=== PATIENT | female | born 1955 | race Caucasian/White ===

== ENCOUNTER 2016-07-12 11:43 | Emergency (ER) | payer MEDICAID, OTHER ==
[~2016-07-12] VITALS: Ht 180.3 cm; Wt 100.0 kg
[~2016-07-12 11:43] MED LIST: BENZ2TAB10 PO; HALO5 PO; HALOD50I; LISI10TA7 PO
[2016-07-12] MEDS ORDERED: IBUPROFEN 600 MG TABLET PO ONE (13:15)
[2016-07-12 13:40] VITALS: BP 133/74
== END 2016-07-12 14:25 | disposition home or self-care (01) ==
LOC: EMS 11:44
DX: J02.9 Acute pharyngitis, unspecified (principal); F17.210 Nicotine dependence, cigarettes, uncomplicated
CPT/HCPCS: 99282; 99283

== ENCOUNTER 2016-08-09 08:51 | Emergency (ER) | payer OTHER ==
[~2016-08-09] VITALS: Ht 182.9 cm; Wt 104.5 kg
[2016-08-09] MEDS ORDERED: PERTUSS(ACELL),DIPH,TET VAC/PF 0.5 ML VIAL IM ONE (11:00)
[2016-08-09 11:18] VITALS: BP 158/91
== END 2016-08-09 11:20 | disposition home or self-care (01) ==
LOC: EMS 08:53
DX: Z23 Encounter for immunization (principal); F17.210 Nicotine dependence, cigarettes, uncomplicated; Z95.0 Presence of cardiac pacemaker
CPT/HCPCS: 90471; 90715; 99283

== ENCOUNTER 2016-08-14 09:01 | Emergency (ER) | payer OTHER ==
[~2016-08-14] VITALS: Ht 182.9 cm; Wt 104.5 kg
[2016-08-14 10:00] VITALS: BP 132/76
[2016-08-14] MEDS ORDERED: MetroNIDAZOLE 500 MG TABLET PO ONE (10:00)
== END 2016-08-14 10:27 | disposition home or self-care (01) ==
LOC: EMS 09:03
DX: N89.8 Other specified noninflammatory disorders of vagina (principal); F20.9 Schizophrenia, unspecified; J40 Bronchitis, not specified as acute or chronic; F17.210 Nicotine dependence, cigarettes, uncomplicated; Z95.0 Presence of cardiac pacemaker
CPT/HCPCS: 99283; 99406

== ENCOUNTER 2016-09-10 10:09 | Emergency (ER) | payer OTHER ==
[~2016-09-10] VITALS: Ht 177.8 cm; Wt 104.5 kg
[2016-09-10 11:45] VITALS: BP 142/71
== END 2016-09-10 11:49 | disposition home or self-care (01) ==
LOC: EMS 10:12
DX: K02.9 Dental caries, unspecified (principal); R03.0 Elevated blood-pressure reading, without diagnosis of hypertension; F17.210 Nicotine dependence, cigarettes, uncomplicated; Z95.0 Presence of cardiac pacemaker
CPT/HCPCS: 99283

== ENCOUNTER 2016-09-17 09:56 | Emergency (ER) | payer OTHER ==
[~2016-09-17] VITALS: Ht 182.9 cm; Wt 104.5 kg
[2016-09-17] MEDS ORDERED: AMOX250C4 PO (10:39)
[2016-09-17 12:26] VITALS: BP 148/74
[2016-09-17] MEDS ORDERED: HYDROCODONE/ACETAMINOPHEN 5-325 MG TABLET PO ONE (13:00)
[2016-09-17] MEDS ORDERED: FLUCONAZOLE 150 MG TABLET PO ONE (13:00)
== END 2016-09-17 13:40 | disposition home or self-care (01) ==
LOC: EMS 09:58
DX: B37.3 Candidiasis of vulva and vagina (principal); G89.29 Other chronic pain; F17.210 Nicotine dependence, cigarettes, uncomplicated; Z95.0 Presence of cardiac pacemaker
CPT/HCPCS: 99283

== ENCOUNTER 2016-10-01 07:56 | Emergency (ER) | payer OTHER ==
[~2016-10-01] VITALS: Ht 182.9 cm; Wt 98.0 kg
[~2016-10-01 07:56] MED LIST changes: +AMOX250C4 PO; -BENZ2TAB10 PO; -HALO5 PO; -HALOD50I; -LISI10TA7 PO
[2016-10-01 08:01] VITALS: BP 155/68
[2016-10-01] MEDS ORDERED: FLUCONAZOLE 150 MG TABLET PO ONE (08:15)
== END 2016-10-01 08:27 | disposition home or self-care (01) ==
LOC: EMS 07:58
DX: S91.331A Puncture wound without foreign body, right foot, initial encounter (principal); B37.3 Candidiasis of vulva and vagina; F17.210 Nicotine dependence, cigarettes, uncomplicated; X58.XXXA Exposure to other specified factors, initial encounter; Y93.89 Activity, other specified; Y92.9 Unspecified place or not applicable; Y99.9 Unspecified external cause status
CPT/HCPCS: 99283

== ENCOUNTER 2016-10-02 12:41 | Emergency (ER) | payer OTHER ==
[~2016-10-02] VITALS: Ht 182.9 cm; Wt 104.5 kg
[2016-10-02] MEDS ORDERED: BACITRACIN 0.9 GM PACKET OINTMENT TP ONE (17:45)
[2016-10-02] MEDS ORDERED: IBUPROFEN 800 MG TABLET PO ONE (18:00)
[2016-10-02 18:03] VITALS: BP 134/78
== END 2016-10-02 18:05 | disposition home or self-care (01) ==
LOC: EMS 13:02 → EEVIPCON 13:02 → EMS 15:46
DX: S91.331A Puncture wound without foreign body, right foot, initial encounter (principal); F41.9 Anxiety disorder, unspecified; F17.210 Nicotine dependence, cigarettes, uncomplicated; X58.XXXA Exposure to other specified factors, initial encounter; Y93.89 Activity, other specified; Y92.89 Other specified places as the place of occurrence of the external cause; Y99.8 Other external cause status
CPT/HCPCS: 99283

== ENCOUNTER 2016-10-22 10:03 | Emergency (ER) | payer OTHER ==
[~2016-10-22] VITALS: Ht 175.3 cm; Wt 111.5 kg
[2016-10-22] MEDS ORDERED: ONDANSETRON HCL 4 MG TABLET PO ONE (11:30)
[2016-10-22 13:18] VITALS: BP 138/81
== END 2016-10-22 13:19 | disposition home or self-care (01) ==
LOC: EMS 10:05
DX: R11.0 Nausea (principal); F17.210 Nicotine dependence, cigarettes, uncomplicated; Z76.0 Encounter for issue of repeat prescription
CPT/HCPCS: 81002; 99283; Q0162

== ENCOUNTER 2016-10-26 08:06 | Emergency (ER) | payer OTHER ==
[~2016-10-26] VITALS: Ht 182.9 cm; Wt 104.5 kg
[2016-10-26 08:09] VITALS: BP 188/84
== END 2016-10-26 09:05 | disposition home or self-care (01) ==
LOC: EMS 08:08
DX: J02.9 Acute pharyngitis, unspecified (principal); J40 Bronchitis, not specified as acute or chronic; M79.601 Pain in right arm; F17.210 Nicotine dependence, cigarettes, uncomplicated
CPT/HCPCS: 99283

== ENCOUNTER 2016-11-04 07:10 | Emergency (ER) | payer OTHER ==
[~2016-11-04] VITALS: Ht 170.2 cm; Wt 104.5 kg
[2016-11-04 07:17] VITALS: BP 147/91
[2016-11-04] MEDS ORDERED: KETOROLAC TROMETHAMINE 60 MG/2 ML VIAL IM ONE (08:30)
[2016-11-04] MEDS ORDERED: CLOTRIMAZOLE 1% 15 GM CREAM TP ONE (08:45)
== END 2016-11-04 08:56 | disposition home or self-care (01) ==
LOC: EMS 07:12
DX: B35.4 Tinea corporis (principal); F17.210 Nicotine dependence, cigarettes, uncomplicated
CPT/HCPCS: 99282

== ENCOUNTER 2016-11-09 07:12 | Emergency (ER) | payer OTHER ==
[~2016-11-09] VITALS: Ht 182.9 cm; Wt 100.0 kg
[2016-11-09 08:22] VITALS: BP 137/89
== END 2016-11-09 08:30 | disposition home or self-care (01) ==
LOC: EMS 07:13
DX: J02.9 Acute pharyngitis, unspecified (principal); F17.210 Nicotine dependence, cigarettes, uncomplicated
CPT/HCPCS: 99283

== ENCOUNTER 2016-11-29 13:48 | Emergency (ER) | payer OTHER ==
[~2016-11-29] VITALS: Ht 182.9 cm; Wt 104.5 kg
[2016-11-29] MEDS ORDERED: HYDR-309 PO (13:58)
[2016-11-29] MEDS ORDERED: HYDROCODONE/ACETAMINOPHEN 5-325 MG TABLET PO ONE (14:45)
[2016-11-29] MEDS ORDERED: LIDOCAINE HCL 1% 20 ML VIAL INJ ONE (15:30)
[2016-11-29 16:48] VITALS: BP 138/77
== END 2016-11-29 17:05 | disposition home or self-care (01) ==
LOC: EMS 13:50
DX: S63.275A Dislocation of unspecified interphalangeal joint of left ring finger, initial encounter (principal); F17.210 Nicotine dependence, cigarettes, uncomplicated; W06.XXXA Fall from bed, initial encounter; Y93.89 Activity, other specified; Y92.89 Other specified places as the place of occurrence of the external cause; Y99.8 Other external cause status
CPT/HCPCS: 26770; 73130; 99284; J3490

== ENCOUNTER 2017-02-16 11:57 | Emergency (ER) | payer OTHER ==
[~2017-02-16] VITALS: Ht 170.2 cm; Wt 90.0 kg
[~2017-02-16 11:57] MED LIST changes: -AMOX250C4 PO; +HYDR-309 PO
[2017-02-16 12:01] VITALS: BP 161/83
== END 2017-02-16 12:19 | disposition left against medical advice (07) ==
LOC: EMS 11:58
DX: J02.9 Acute pharyngitis, unspecified (principal); F17.210 Nicotine dependence, cigarettes, uncomplicated; Z53.21 Procedure and treatment not carried out due to patient leaving prior to being seen by health care provider

== ENCOUNTER 2017-02-27 23:53 | Inpatient (IN) | payer MEDICAID, OTHER ==
[~2017-02-27] VITALS: Ht 162.6 cm; Wt 100.2 kg
[2017-02-28] MEDS ORDERED: BENZ1TAB10 PO (00:20)
[2017-02-28] MEDS ORDERED: PALI234D IM (00:20)
[2017-02-28] MEDS ORDERED: HYDR25TA PO (00:20)
[2017-02-28] MEDS ORDERED: LISI-661 PO (00:20)
[2017-02-28] MEDS ORDERED: PALI6 PO (00:20)
[2017-02-28] MEDS ORDERED: AMLO-511 PO (00:20)
[2017-02-28] MEDS ORDERED: OLAN10TA3 PO (00:20)
[2017-02-28] MEDS ORDERED: LORazepam 2 MG/ML VIAL IM ONE (00:30)
[2017-02-28] MEDS ORDERED: HALOPERIDOL LACTATE 5 MG/ML VIAL IM ONE (00:30)
[2017-02-28] MEDS ORDERED: DiphenhydrAMINE HCL 50 MG/ML VIAL IM ONE (01:30)
[2017-02-28 02:31] LABS: BASOPHILS % (AUTO) 0.8 % (0.0-2.0); EOSINOPHILS # (AUTO) 0.04 K/uL (0.00-0.70); EOSINOPHILS % (AUTO) 0.31 % (1.0-6.0); HEMATOCRIT 42.8 % (36-46); HEMOGLOBIN 14.3 g/dL (12.0-16.0); LYMPHOCYTES # (AUTO) 1.3 K/uL (1.0-4.8); LYMPHOCYTES % (AUTO) 11.1 % (22.0-44.0); MEAN CORPUSCULAR HGB CONC 33.4 G/dL (31.0-37.0); MEAN CORPUSCULAR VOLUME 87 fL (80-100); MONOCYTES # (AUTO) 0.4 K/uL (0.1-1.0); MONOCYTES % (AUTO) 3.4 % (2.0-9.0); NEUTROPHILS # (AUTO) 10.1 K/uL (1.8-7.7); NEUTROPHILS % (AUTO) 84.3 % (40.0-70.0); PLATELET COUNT (AUTO) 184 K/uL (150-450); RED BLOOD CELL COUNT(AUTO) 4.93 MIL/uL (4.00-5.20)
[2017-02-28 02:41] LABS: ANION GAP 14 mmol/L (8-16); CALCIUM, TOTAL 8.9 mg/dL (8.8-10.5); CARBON DIOXIDE 24 mmol/L (22-29); CHLORIDE 103 mmol/L (98-107); CREATININE 1.14 mg/dL (0.60-1.30); GLOMERULAR FILTR. RATE CALC 48 mL/min (>60); POTASSIUM 3.1 mmol/L (3.5-5.1); SODIUM SERUM 141 mmol/L (136-145); UREA NITROGEN, BLOOD 10 mg/dL (7-18)
[2017-02-28 02:46] LABS: ALANINE AMINOTRANSFERASE 25 U/L (12-78); ALBUMIN 3.8 g/dL (3.4-5.0); ASPARTATE AMINOTRANSFERASE 22 U/L (15-37); BILIRUBIN,TOTAL 0.3 mg/dL (0.1-1.0); TOTAL PROTEIN, SERUM 7.8 g/dL (6.4-8.2)
[2017-02-28] MEDS ORDERED: POTASSIUM CHLORIDE 20 MEQ ER TABLET PO ONE (03:15)
[2017-02-28] MEDS: LORazepam 2 MG TABLET PO PRN ×2 (05:38→15:35)
[2017-02-28 16:16] VITALS: BP 136/91
[2017-02-28 16:29] VITALS: BP 136/91
[2017-02-28] MEDS: HALOPERIDOL 5 MG TABLET PO PRN (18:52)
[2017-03-01] MEDS: HALOPERIDOL 5 MG TABLET PO PRN (09:55)
[2017-03-01] MEDS: LORazepam 2 MG TABLET PO PRN (09:55)
[2017-03-01] MEDS ORDERED: DiphenhydrAMINE HCL 50 MG/ML VIAL IM ONE (10:45)
[2017-03-01 12:53] VITALS: BP 132/88
[2017-03-01] MEDS: OLANZapine 10 MG RAPDIS TABLET PO SCH (21:00)
[2017-03-02] MEDS: LORazepam 2 MG TABLET PO PRN (07:25)
[2017-03-02] MEDS: HALOPERIDOL 5 MG TABLET PO PRN (07:25)
[2017-03-02] MEDS ORDERED: DiphenhydrAMINE HCL 50 MG/ML VIAL IM ONE (07:45)
[2017-03-02 08:20] VITALS: BP 128/86
[2017-03-02] MEDS: OLANZapine 5 MG RAPDIS TABLET PO SCH (08:51)
[2017-03-02 13:46] VITALS: BP 136/91
[2017-03-02] MEDS ORDERED: POTASSIUM CHLORIDE 20 MEQ ER TABLET PO SCH (15:00)
[2017-03-02] MEDS ORDERED: POTASSIUM CHLORIDE 20 MEQ ER TABLET PO ONE (15:15)
[2017-03-02] MEDS ORDERED: PNEUMOCOCCAL VACCINE POLYVALENT 0.5 ML VIAL [PPSV23] IM ONE (17:30)
[2017-03-02] MEDS: OLANZapine 10 MG RAPDIS TABLET PO SCH (21:00)
[2017-03-03 06:10] VITALS: BP 133/74
[2017-03-03 08:25] VITALS: BP 127/81
[2017-03-03] MEDS: OLANZapine 5 MG RAPDIS TABLET PO SCH (09:00)
[2017-03-03] MEDS: NICOTINE 7 MG/24 HOUR PATCH TD SCH (09:00)
[2017-03-03 16:15] VITALS: BP 124/74
[2017-03-03] MEDS: LORazepam 2 MG TABLET PO PRN (16:47)
[2017-03-03] MEDS: OLANZapine 10 MG RAPDIS TABLET PO SCH (20:55)
[2017-03-04] MEDS: NICOTINE 7 MG/24 HOUR PATCH TD SCH (09:00)
[2017-03-04] MEDS: OLANZapine 5 MG RAPDIS TABLET PO SCH (09:00)
[2017-03-04] MEDS: LORazepam 2 MG TABLET PO PRN (09:54)
[2017-03-04] MEDS ORDERED: LORazepam 2 MG/ML VIAL IM ONE (10:45)
[2017-03-04] MEDS ORDERED: HALOPERIDOL LACTATE 5 MG/ML VIAL IM ONE (10:45)
[2017-03-04] MEDS ORDERED: DiphenhydrAMINE HCL 50 MG/ML VIAL IM ONE (10:45)
[2017-03-04] MEDS ORDERED: HALOPERIDOL LACTATE 5 MG/ML VIAL ONE (10:46)
[2017-03-04] MEDS: OLANZapine 10 MG RAPDIS TABLET PO SCH (20:03)
[2017-03-05] MEDS: NICOTINE 7 MG/24 HOUR PATCH TD SCH (08:18)
[2017-03-05] MEDS: OLANZapine 10 MG RAPDIS TABLET PO SCH ×2 (08:18→20:30)
[2017-03-05] MEDS: LORazepam 2 MG TABLET PO PRN ×2 (13:03→17:20)
[2017-03-05 17:45] VITALS: BP 133/87
[2017-03-06 06:49] VITALS: BP 134/83
[2017-03-06] MEDS: NICOTINE 7 MG/24 HOUR PATCH TD SCH (08:20)
[2017-03-06] MEDS: OLANZapine 10 MG RAPDIS TABLET PO SCH ×2 (08:20→20:27)
[2017-03-06] MEDS: LORazepam 2 MG TABLET PO PRN ×2 (08:21→17:14)
[2017-03-06] MEDS: HALOPERIDOL 5 MG TABLET PO PRN ×2 (13:10→18:10)
[2017-03-07 03:00] VITALS: BP 127/74
[2017-03-07] MEDS: HALOPERIDOL 5 MG TABLET PO PRN ×3 (07:08→14:19)
[2017-03-07 07:14] LABS: BASOPHILS % (AUTO) 0.5 % (0.0-2.0); EOSINOPHILS % (AUTO) 2.4 % (1.0-6.0); HEMATOCRIT 38.6 % (36-46); HEMOGLOBIN 12.8 g/dL (12.0-16.0); LYMPHOCYTES # (AUTO) 2.4 K/uL (1.0-4.8); LYMPHOCYTES % (AUTO) 29.1 % (22.0-44.0); MEAN CORPUSCULAR HGB CONC 33.2 G/dL (31.0-37.0); MEAN CORPUSCULAR VOLUME 87 fL (80-100); MONOCYTES # (AUTO) 0.4 K/uL (0.1-1.0); MONOCYTES % (AUTO) 5.3 % (2.0-9.0); NEUTROPHILS # (AUTO) 5.1 K/uL (1.8-7.7); NEUTROPHILS % (AUTO) 62.7 % (40.0-70.0); PLATELET COUNT (AUTO) 193 K/uL (150-450); RED BLOOD CELL COUNT(AUTO) 4.43 MIL/uL (4.00-5.20); RED CELL DISTRIBUTION WIDTH 14.7 % (11.5-14.5); WHITE BLOOD COUNT (AUTO) 8.1 K/uL (4.5-11.0)
[2017-03-07 07:27] LABS: ALANINE AMINOTRANSFERASE 26 U/L (12-78); ANION GAP 10 mmol/L (8-16); ASPARTATE AMINOTRANSFERASE 22 U/L (15-37); BILIRUBIN,TOTAL 0.3 mg/dL (0.1-1.0); CALCIUM, TOTAL 8.6 mg/dL (8.8-10.5); CARBON DIOXIDE 24 mmol/L (22-29); CHLORIDE 110 mmol/L (98-107); CREATININE 0.83 mg/dL (0.60-1.30); GLOMERULAR FILTR. RATE CALC > 60 mL/min (>60); SODIUM SERUM 144 mmol/L (136-145); TOTAL PROTEIN, SERUM 6.3 g/dL (6.4-8.2); UREA NITROGEN, BLOOD 8 mg/dL (7-18)
[2017-03-07] MEDS: LORazepam 2 MG TABLET PO PRN ×2 (08:34→17:41)
[2017-03-07] MEDS: NICOTINE 7 MG/24 HOUR PATCH TD SCH (08:34)
[2017-03-07] MEDS: OLANZapine 10 MG RAPDIS TABLET PO SCH ×2 (08:34→20:24)
[2017-03-08] MEDS: ZOLPIDEM TARTRATE 10 MG TABLET PO PRN ×2 (00:05→22:37)
[2017-03-08] MEDS: HALOPERIDOL 5 MG TABLET PO PRN ×2 (06:38→11:20)
[2017-03-08] MEDS: ACETAMINOPHEN 325 MG TABLET PO PRN ×2 (06:55→18:58)
[2017-03-08] MEDS: BENZOCAINE/MENTHOL LOZENGE PO PRN (06:55)
[2017-03-08 08:26] VITALS: BP 131/68
[2017-03-08] MEDS: NICOTINE 7 MG/24 HOUR PATCH TD SCH (09:33)
[2017-03-08] MEDS: OLANZapine 10 MG RAPDIS TABLET PO SCH ×2 (09:33→20:45)
[2017-03-08] MEDS: LORazepam 2 MG TABLET PO PRN ×2 (10:27→17:26)
[2017-03-08] MEDS: IBUPROFEN 400 MG TABLET PO PRN (12:05)
[2017-03-09 01:41] VITALS: BP 130/74
[2017-03-09] MEDS: LORazepam 2 MG TABLET PO PRN ×3 (01:46→18:08)
[2017-03-09] MEDS: BENZOCAINE/MENTHOL LOZENGE PO PRN ×2 (01:46→10:18)
[2017-03-09] MEDS: IBUPROFEN 400 MG TABLET PO PRN ×3 (01:46→20:34)
[2017-03-09 08:16] VITALS: BP 130/79
[2017-03-09] MEDS: NICOTINE 7 MG/24 HOUR PATCH TD SCH (09:00)
[2017-03-09] MEDS: OLANZapine 10 MG RAPDIS TABLET PO SCH ×2 (09:34→20:09)
[2017-03-09 10:32] VITALS: BP 124/72
[2017-03-09 16:15] VITALS: BP 126/74
[2017-03-09] MEDS: ZOLPIDEM TARTRATE 10 MG TABLET PO PRN (20:34)
[2017-03-10 02:09] VITALS: BP 133/74
[2017-03-10] MEDS: NICOTINE 7 MG/24 HOUR PATCH TD SCH (09:00)
[2017-03-10] MEDS: OLANZapine 10 MG RAPDIS TABLET PO SCH ×2 (09:49→20:29)
[2017-03-10 10:15] VITALS: BP 130/81
[2017-03-10] MEDS: ACETAMINOPHEN 325 MG TABLET PO PRN (10:19)
[2017-03-10] MEDS: BENZOCAINE/MENTHOL LOZENGE PO PRN (10:43)
[2017-03-10] MEDS: LORazepam 2 MG TABLET PO PRN (14:27)
[2017-03-10 16:04] VITALS: BP 135/62
[2017-03-10] MEDS: IBUPROFEN 400 MG TABLET PO PRN (16:07)
[2017-03-10] MEDS: ZOLPIDEM TARTRATE 10 MG TABLET PO PRN (20:29)
[2017-03-11] MEDS: ACETAMINOPHEN 325 MG TABLET PO PRN (04:19)
[2017-03-11] MEDS: NICOTINE 7 MG/24 HOUR PATCH TD SCH (09:00)
[2017-03-11] MEDS: OLANZapine 10 MG RAPDIS TABLET PO SCH ×2 (10:26→20:17)
[2017-03-11] MEDS: LORazepam 2 MG TABLET PO PRN (13:46)
[2017-03-11] MEDS: IBUPROFEN 400 MG TABLET PO PRN (15:59)
[2017-03-11] MEDS: ZOLPIDEM TARTRATE 10 MG TABLET PO PRN (21:00)
[2017-03-12] MEDS: NICOTINE 7 MG/24 HOUR PATCH TD SCH (08:25)
[2017-03-12] MEDS: OLANZapine 10 MG RAPDIS TABLET PO SCH ×2 (08:25→20:21)
[2017-03-12] MEDS: ACETAMINOPHEN 325 MG TABLET PO PRN (13:22)
[2017-03-12 16:03] VITALS: BP 123/68
[2017-03-12] MEDS: IBUPROFEN 400 MG TABLET PO PRN (16:24)
[2017-03-12] MEDS: LORazepam 2 MG TABLET PO PRN (20:29)
[2017-03-12] MEDS: HALOPERIDOL LACTATE 5 MG/ML VIAL IM PRN (21:05)
[2017-03-13] MEDS: NICOTINE 7 MG/24 HOUR PATCH TD SCH (09:00)
[2017-03-13] MEDS: OLANZapine 10 MG RAPDIS TABLET PO SCH ×2 (09:00→20:21)
[2017-03-13] MEDS: HALOPERIDOL LACTATE 5 MG/ML VIAL IM PRN ×2 (10:09→20:22)
[2017-03-13] MEDS: LORazepam 2 MG TABLET PO PRN (13:32)
[2017-03-13] MEDS ORDERED: TUBERCULIN, PURIFIED PROTEIN DERIVATIVE 5 TU/0.1 ML SYG ID ONE (16:15)
[2017-03-14] MEDS: OLANZapine 10 MG RAPDIS TABLET PO SCH ×2 (09:00→20:10)
[2017-03-14] MEDS: NICOTINE 7 MG/24 HOUR PATCH TD SCH (09:00)
[2017-03-14] MEDS: LORazepam 2 MG TABLET PO PRN (10:19)
[2017-03-14] MEDS: HALOPERIDOL LACTATE 5 MG/ML VIAL IM PRN ×2 (10:36→21:07)
[2017-03-15 07:12] VITALS: BP 131/66
[2017-03-15] MEDS: NICOTINE 7 MG/24 HOUR PATCH TD SCH (09:00)
[2017-03-15] MEDS: OLANZapine 10 MG RAPDIS TABLET PO SCH ×2 (09:00→20:34)
[2017-03-15] MEDS: LORazepam 2 MG TABLET PO PRN (09:33)
[2017-03-15] MEDS: HALOPERIDOL LACTATE 5 MG/ML VIAL IM PRN (10:12)
[2017-03-15] MEDS: IBUPROFEN 400 MG TABLET PO PRN (12:00)
[2017-03-16] MEDS: NICOTINE 7 MG/24 HOUR PATCH TD SCH (09:00)
[2017-03-16] MEDS: OLANZapine 10 MG RAPDIS TABLET PO SCH ×2 (09:00→20:29)
[2017-03-16] MEDS: HALOPERIDOL LACTATE 5 MG/ML VIAL IM PRN (10:40)
[2017-03-16] MEDS: LORazepam 2 MG TABLET PO PRN (18:18)
[2017-03-17] MEDS: LORazepam 2 MG TABLET PO PRN ×2 (03:32→09:11)
[2017-03-17] MEDS: NICOTINE 7 MG/24 HOUR PATCH TD SCH (09:00)
[2017-03-17] MEDS: OLANZapine 10 MG RAPDIS TABLET PO SCH ×2 (09:11→20:46)
[2017-03-17] MEDS: ACETAMINOPHEN 325 MG TABLET PO PRN (12:25)
[2017-03-18] MEDS: ZOLPIDEM TARTRATE 10 MG TABLET PO PRN ×2 (01:01→21:01)
[2017-03-18] MEDS: LORazepam 2 MG TABLET PO PRN ×3 (06:11→16:06)
[2017-03-18] MEDS: NICOTINE 7 MG/24 HOUR PATCH TD SCH (09:00)
[2017-03-18] MEDS: OLANZapine 10 MG RAPDIS TABLET PO SCH ×2 (09:31→20:05)
[2017-03-18 16:29] VITALS: BP 137/64
[2017-03-18] MEDS: HALOPERIDOL 5 MG TABLET PO PRN (17:59)
[2017-03-19] MEDS: NICOTINE 7 MG/24 HOUR PATCH TD SCH (09:00)
[2017-03-19] MEDS: OLANZapine 10 MG RAPDIS TABLET PO SCH ×2 (10:24→20:35)
[2017-03-19] MEDS: LORazepam 2 MG TABLET PO PRN (12:56)
[2017-03-19] MEDS: ACETAMINOPHEN 325 MG TABLET PO PRN (14:09)
[2017-03-19 16:23] VITALS: BP 132/72
[2017-03-19] MEDS: ZOLPIDEM TARTRATE 10 MG TABLET PO PRN (23:56)
[2017-03-20] MEDS: IBUPROFEN 400 MG TABLET PO PRN (01:57)
[2017-03-20] MEDS: MAG HYDROX/AL HYDROX/SIMETH ES 30 ML SUSPENSION UDCUP PO PRN (01:57)
[2017-03-20 05:00] VITALS: BP 135/76
[2017-03-20] MEDS: ACETAMINOPHEN 325 MG TABLET PO PRN (05:00)
[2017-03-20] MEDS: OLANZapine 10 MG RAPDIS TABLET PO SCH ×2 (08:10→20:10)
[2017-03-20] MEDS: NICOTINE 7 MG/24 HOUR PATCH TD SCH (08:11)
[2017-03-20 08:38] VITALS: BP 128/90
[2017-03-20 16:18] VITALS: BP 159/97
[2017-03-21] MEDS: ACETAMINOPHEN 325 MG TABLET PO PRN ×2 (01:07→16:36)
[2017-03-21] MEDS: NICOTINE 7 MG/24 HOUR PATCH TD SCH (09:10)
[2017-03-21] MEDS: OLANZapine 10 MG RAPDIS TABLET PO SCH ×2 (09:10→20:49)
[2017-03-21] MEDS: LORazepam 2 MG TABLET PO PRN ×2 (09:32→16:36)
[2017-03-21] MEDS: IBUPROFEN 400 MG TABLET PO PRN (18:13)
[2017-03-21] MEDS: ZOLPIDEM TARTRATE 10 MG TABLET PO PRN (20:49)
[2017-03-22] MEDS: ACETAMINOPHEN 325 MG TABLET PO PRN (01:36)
[2017-03-22] MEDS: IBUPROFEN 400 MG TABLET PO PRN (07:08)
[2017-03-22] MEDS: OLANZapine 10 MG RAPDIS TABLET PO SCH ×2 (08:32→20:46)
[2017-03-22] MEDS: NICOTINE 7 MG/24 HOUR PATCH TD SCH (08:33)
[2017-03-22] MEDS: LORazepam 2 MG TABLET PO PRN (10:45)
[2017-03-22] MEDS: ZOLPIDEM TARTRATE 10 MG TABLET PO PRN (20:46)
[2017-03-23] MEDS: IBUPROFEN 400 MG TABLET PO PRN ×2 (05:14→13:25)
[2017-03-23] MEDS: OLANZapine 10 MG RAPDIS TABLET PO SCH ×2 (08:34→20:17)
[2017-03-23] MEDS: NICOTINE 7 MG/24 HOUR PATCH TD SCH (08:35)
[2017-03-23] MEDS: LORazepam 2 MG TABLET PO PRN ×2 (10:16→20:42)
[2017-03-23] MEDS: ZOLPIDEM TARTRATE 10 MG TABLET PO PRN (20:42)
[2017-03-24] MEDS: ACETAMINOPHEN 325 MG TABLET PO PRN (06:45)
[2017-03-24] MEDS: NICOTINE 7 MG/24 HOUR PATCH TD SCH (10:16)
[2017-03-24] MEDS: OLANZapine 10 MG RAPDIS TABLET PO SCH ×2 (10:17→20:23)
[2017-03-24] MEDS: LORazepam 2 MG TABLET PO PRN ×2 (12:47→16:58)
[2017-03-24] MEDS ORDERED: TUBERCULIN, PURIFIED PROTEIN DERIVATIVE 5 TU/0.1 ML SYG ID ONE (14:00)
[2017-03-24] MEDS: ZOLPIDEM TARTRATE 10 MG TABLET PO PRN (20:23)
[2017-03-25] MEDS ORDERED: TUBERCULIN, PURIFIED PROTEIN DERIVATIVE 5 TU/0.1 ML SYG ID ONE (08:15)
[2017-03-25] MEDS: NICOTINE 7 MG/24 HOUR PATCH TD SCH (09:00)
[2017-03-25] MEDS: OLANZapine 10 MG RAPDIS TABLET PO SCH ×2 (09:03→20:33)
[2017-03-25] MEDS: LORazepam 2 MG TABLET PO PRN (14:56)
[2017-03-25] MEDS: IBUPROFEN 400 MG TABLET PO PRN (17:21)
[2017-03-25] MEDS: MAG HYDROX/AL HYDROX/SIMETH ES 30 ML SUSPENSION UDCUP PO PRN (20:08)
[2017-03-26] MEDS: OLANZapine 10 MG RAPDIS TABLET PO SCH ×2 (08:45→21:38)
[2017-03-26] MEDS: NICOTINE 7 MG/24 HOUR PATCH TD SCH (08:46)
[2017-03-26] MEDS: LORazepam 2 MG TABLET PO PRN ×2 (09:47→17:41)
[2017-03-26] MEDS: IBUPROFEN 400 MG TABLET PO PRN (15:14)
[2017-03-26] MEDS: ZOLPIDEM TARTRATE 10 MG TABLET PO PRN (21:38)
[2017-03-26] MEDS: MAG HYDROX/AL HYDROX/SIMETH ES 30 ML SUSPENSION UDCUP PO PRN (22:58)
[2017-03-27] MEDS: OLANZapine 10 MG RAPDIS TABLET PO SCH ×2 (08:39→20:11)
[2017-03-27] MEDS: NICOTINE 7 MG/24 HOUR PATCH TD SCH (08:39)
[2017-03-27] MEDS: LORazepam 2 MG TABLET PO PRN ×2 (12:23→16:46)
[2017-03-27 16:00] VITALS: BP 116/72
[2017-03-27] MEDS: ZOLPIDEM TARTRATE 10 MG TABLET PO PRN (20:11)
[2017-03-28] MEDS: OLANZapine 10 MG RAPDIS TABLET PO SCH ×2 (08:35→20:03)
[2017-03-28] MEDS: NICOTINE 7 MG/24 HOUR PATCH TD SCH (08:36)
[2017-03-28] MEDS: ACETAMINOPHEN 325 MG TABLET PO PRN ×2 (10:59→20:03)
[2017-03-28] MEDS: ZOLPIDEM TARTRATE 10 MG TABLET PO PRN (20:03)
[2017-03-28] MEDS: LORazepam 2 MG TABLET PO PRN (20:04)
[2017-03-28] MEDS: IBUPROFEN 400 MG TABLET PO PRN (22:00)
[2017-03-29] MEDS: LORazepam 2 MG TABLET PO PRN ×3 (00:18→20:47)
[2017-03-29 08:31] VITALS: BP 126/70
[2017-03-29] MEDS: OLANZapine 10 MG RAPDIS TABLET PO SCH ×2 (08:41→20:12)
[2017-03-29] MEDS: NICOTINE 7 MG/24 HOUR PATCH TD SCH (09:00)
[2017-03-29 13:30] VITALS: BP 135/78
[2017-03-29] MEDS: ACETAMINOPHEN 325 MG TABLET PO PRN (13:30)
[2017-03-29] MEDS: ZOLPIDEM TARTRATE 10 MG TABLET PO PRN (20:47)
[2017-03-30] MEDS ORDERED: IBUPROFEN 400 MG TABLET PO PRN (06:15)
[2017-03-30] MEDS: NICOTINE 7 MG/24 HOUR PATCH TD SCH (09:00)
[2017-03-30] MEDS: OLANZapine 10 MG RAPDIS TABLET PO SCH ×2 (09:31→20:23)
[2017-03-30] MEDS: AmLODIPine BESYLATE 5 MG TABLET PO SCH (09:31)
[2017-03-30] MEDS: LISINOPRIL 10 MG TABLET PO SCH (09:32)
[2017-03-30] MEDS: ACETAMINOPHEN 325 MG TABLET PO PRN (15:01)
[2017-03-30] MEDS: LORazepam 2 MG TABLET PO PRN (16:59)
[2017-03-30] MEDS: IBUPROFEN 400 MG TABLET PO PRN (20:24)
[2017-03-31] MEDS: LISINOPRIL 10 MG TABLET PO SCH (08:44)
[2017-03-31] MEDS: OLANZapine 10 MG RAPDIS TABLET PO SCH ×2 (08:44→20:36)
[2017-03-31] MEDS: AmLODIPine BESYLATE 5 MG TABLET PO SCH (08:44)
[2017-03-31] MEDS: ACETAMINOPHEN 325 MG TABLET PO PRN (14:16)
[2017-03-31] MEDS: LORazepam 2 MG TABLET PO PRN (16:31)
[2017-03-31] MEDS: IBUPROFEN 400 MG TABLET PO PRN (17:18)
[2017-04-01] MEDS: LISINOPRIL 10 MG TABLET PO SCH (09:00)
[2017-04-01] MEDS: OLANZapine 10 MG RAPDIS TABLET PO SCH ×2 (09:02→20:14)
[2017-04-01] MEDS: AmLODIPine BESYLATE 5 MG TABLET PO SCH (09:02)
[2017-04-01] MEDS: ACETAMINOPHEN 325 MG TABLET PO PRN (12:34)
[2017-04-01 12:35] VITALS: BP 147/90
[2017-04-01 13:35] VITALS: BP 133/88
[2017-04-01] MEDS: ZOLPIDEM TARTRATE 10 MG TABLET PO PRN (21:18)
[2017-04-02] MEDS: ACETAMINOPHEN 325 MG TABLET PO PRN ×2 (02:33→10:59)
[2017-04-02] MEDS: LISINOPRIL 10 MG TABLET PO SCH (08:45)
[2017-04-02] MEDS: OLANZapine 10 MG RAPDIS TABLET PO SCH ×2 (08:45→20:21)
[2017-04-02] MEDS: AmLODIPine BESYLATE 5 MG TABLET PO SCH (08:46)
[2017-04-02 09:13] LABS: APPEARANCE,URINE CLEAR (CLEAR); GLUCOSE, URINE (UA) NEGATIVE (NEGATIVE); KETONES,URINE NEGATIVE (NEGATIVE); LEUKOCYTE ESTERASE ,URINE NEGATIVE (NEGATIVE); OCCULT BLOOD,URINE NEGATIVE (NEGATIVE); PROTEIN,URINE NEGATIVE (NEGATIVE)
[2017-04-02 09:19] LABS: ADD UA MICROSCOPIC NO
[2017-04-02] MEDS: IBUPROFEN 400 MG TABLET PO PRN (13:46)
[2017-04-02] MEDS: LORazepam 2 MG TABLET PO PRN (16:47)
[2017-04-02] MEDS: MAG HYDROX/AL HYDROX/SIMETH ES 30 ML SUSPENSION UDCUP PO PRN (19:27)
[2017-04-02] MEDS: ZOLPIDEM TARTRATE 10 MG TABLET PO PRN (21:01)
[2017-04-03] MEDS: OLANZapine 10 MG RAPDIS TABLET PO SCH ×2 (08:25→20:23)
[2017-04-03] MEDS: LISINOPRIL 10 MG TABLET PO SCH ×2 (08:25→09:00)
[2017-04-03] MEDS: AmLODIPine BESYLATE 5 MG TABLET PO SCH ×2 (08:25→09:00)
[2017-04-03 10:50] VITALS: BP 125/80
[2017-04-03] MEDS: ACETAMINOPHEN 325 MG TABLET PO PRN (10:50)
[2017-04-03 11:49] VITALS: BP 125/75
[2017-04-03 17:42] VITALS: BP 128/78
[2017-04-03] MEDS: IBUPROFEN 400 MG TABLET PO PRN (17:42)
[2017-04-03] MEDS: ZOLPIDEM TARTRATE 10 MG TABLET PO PRN (21:21)
[2017-04-04] MEDS: ACETAMINOPHEN 325 MG TABLET PO PRN (04:33)
[2017-04-04] MEDS: OLANZapine 10 MG RAPDIS TABLET PO SCH ×2 (08:47→20:24)
[2017-04-04] MEDS: AmLODIPine BESYLATE 5 MG TABLET PO SCH (08:48)
[2017-04-04] MEDS: LISINOPRIL 10 MG TABLET PO SCH ×3 (08:48→15:00)
[2017-04-04] MEDS: ZOLPIDEM TARTRATE 10 MG TABLET PO PRN (21:01)
[2017-04-05] MEDS: ACETAMINOPHEN 325 MG TABLET PO PRN (05:04)
[2017-04-05 10:00] VITALS: BP 162/105
[2017-04-05] MEDS: AmLODIPine BESYLATE 5 MG TABLET PO SCH (10:03)
[2017-04-05] MEDS: OLANZapine 10 MG RAPDIS TABLET PO SCH ×2 (10:03→20:23)
[2017-04-05] MEDS: LISINOPRIL 10 MG TABLET PO SCH (10:03)
[2017-04-05] MEDS: LORazepam 2 MG TABLET PO PRN (10:06)
[2017-04-05 16:21] VITALS: BP 159/95
[2017-04-05 17:38] VITALS: BP 142/90
[2017-04-05] MEDS: IBUPROFEN 400 MG TABLET PO PRN (17:38)
[2017-04-06] MEDS: AmLODIPine BESYLATE 5 MG TABLET PO SCH (09:00)
[2017-04-06] MEDS: LISINOPRIL 10 MG TABLET PO SCH (09:00)
[2017-04-06] MEDS: OLANZapine 10 MG RAPDIS TABLET PO SCH ×2 (09:34→20:15)
[2017-04-06] MEDS: ACETAMINOPHEN 325 MG TABLET PO PRN (10:56)
[2017-04-06] MEDS: ZOLPIDEM TARTRATE 10 MG TABLET PO PRN (23:57)
[2017-04-07] MEDS: AmLODIPine BESYLATE 5 MG TABLET PO SCH ×2 (08:29→09:00)
[2017-04-07] MEDS: LISINOPRIL 10 MG TABLET PO SCH ×2 (08:30→09:00)
[2017-04-07] MEDS: OLANZapine 10 MG RAPDIS TABLET PO SCH ×2 (08:30→20:10)
[2017-04-07 10:48] VITALS: BP 135/81
[2017-04-07] MEDS: ACETAMINOPHEN 325 MG TABLET PO PRN (10:48)
[2017-04-08] MEDS: AmLODIPine BESYLATE 5 MG TABLET PO SCH (09:33)
[2017-04-08] MEDS: LISINOPRIL 10 MG TABLET PO SCH (09:33)
[2017-04-08] MEDS: OLANZapine 10 MG RAPDIS TABLET PO SCH ×2 (09:33→20:06)
[2017-04-08] MEDS: MAG HYDROX/AL HYDROX/SIMETH ES 30 ML SUSPENSION UDCUP PO PRN (22:10)
[2017-04-08] MEDS: ZOLPIDEM TARTRATE 10 MG TABLET PO PRN (23:59)
[2017-04-09] MEDS: OLANZapine 10 MG RAPDIS TABLET PO SCH (08:17)
[2017-04-09] MEDS: LORazepam 2 MG TABLET PO PRN ×2 (08:17→13:08)
[2017-04-09] MEDS: LISINOPRIL 10 MG TABLET PO SCH (08:17)
[2017-04-09] MEDS: AmLODIPine BESYLATE 5 MG TABLET PO SCH (08:17)
[2017-04-09] MEDS ORDERED: OLAN10TA6 PO (14:58)
== END 2017-04-09 16:25 | disposition home or self-care (01) | DRG 750 ==
LOC: EMS 23:54 → AHU 02-28 15:00 → B3A 03-02 13:45
PROVIDERS: ADMIT Psychiatry & Neurology Child & Adolescent Psychiatry; ATTEND Psychiatry & Neurology Child & Adolescent Psychiatry
DX: F20.0 Paranoid schizophrenia (principal); I10 Essential (primary) hypertension; Z28.21 Immunization not carried out because of patient refusal; I25.10 Atherosclerotic heart disease of native coronary artery without angina pectoris; F17.200 Nicotine dependence, unspecified, uncomplicated; D72.829 Elevated white blood cell count, unspecified; F41.9 Anxiety disorder, unspecified; Z71.6 Tobacco abuse counseling
CPT/HCPCS: 87081; 93005; 96372; 99285; G0480; J1200; J1630; J2060; J3230

== ENCOUNTER 2017-03-17 16:31 | Emergency (ER) | payer MEDICAID, OTHER ==
[~2017-03-17] VITALS: Ht 182.9 cm; Wt 104.5 kg
[~2017-03-17 16:31] MED LIST changes: +AMLO-511 PO; +BENZ1TAB10 PO; -HYDR-309 PO; +HYDR25TA PO; +LISI-661 PO; +OLAN10TA3 PO; +PALI234D IM; +PALI6 PO
[2017-03-17] MEDS ORDERED: ONDANSETRON HCL 4 MG/2 ML VIAL IVP ONE (18:00)
[2017-03-17] MEDS ORDERED: SODIUM CHLORIDE 0.9% 1,000 ML IV ONE (18:00)
[2017-03-17 18:42] LABS: BASOPHILS % (AUTO) 0.4 % (0.0-2.0); EOSINOPHILS % (AUTO) 2.3 % (1.0-6.0); HEMATOCRIT 38.5 % (36-46); HEMOGLOBIN 12.8 g/dL (12.0-16.0); LYMPHOCYTES # (AUTO) 3.4 K/uL (1.0-4.8); MEAN CORPUSCULAR HEMOGLOBIN 28.8 pg (26.0-34.0); MEAN CORPUSCULAR HGB CONC 33.3 G/dL (31.0-37.0); MEAN CORPUSCULAR VOLUME 86 fL (80-100); MONOCYTES # (AUTO) 0.6 K/uL (0.1-1.0); MONOCYTES % (AUTO) 5.8 % (2.0-9.0); NEUTROPHILS # (AUTO) 5.3 K/uL (1.8-7.7); NEUTROPHILS % (AUTO) 55.5 % (40.0-70.0); PLATELET COUNT (AUTO) 248 K/uL (150-450); RED BLOOD CELL COUNT(AUTO) 4.45 MIL/uL (4.00-5.20); RED CELL DISTRIBUTION WIDTH 14.1 % (11.5-14.5); WHITE BLOOD COUNT (AUTO) 9.6 K/uL (4.5-11.0)
[2017-03-17 18:49] LABS: ANION GAP 7 mmol/L (8-16); CALCIUM, TOTAL 8.5 mg/dL (8.8-10.5); CARBON DIOXIDE 28 mmol/L (22-29); CHLORIDE 109 mmol/L (98-107); CREATININE 1.02 mg/dL (0.60-1.30); GLOMERULAR FILTR. RATE CALC 55 mL/min (>60); POTASSIUM 3.7 mmol/L (3.5-5.1); SODIUM SERUM 144 mmol/L (136-145); UREA NITROGEN, BLOOD 16 mg/dL (7-18)
[2017-03-17 18:55] LABS: ACETAMINOPHEN 2 mcg/mL (10-30); ALANINE AMINOTRANSFERASE 34 U/L (12-78); ALBUMIN 3.2 g/dL (3.4-5.0); ASPARTATE AMINOTRANSFERASE 22 U/L (15-37); BILIRUBIN,TOTAL 0.2 mg/dL (0.1-1.0); TOTAL PROTEIN, SERUM 6.3 g/dL (6.4-8.2)
[2017-03-17 19:10] LABS: SALICYLATE 3.4 mg/dL (2.8-20.0)
[2017-03-17 19:53] VITALS: BP 135/70
== END 2017-03-17 20:09 | disposition home or self-care (01) ==
LOC: EMS 16:35
DX: T55.0X1A Toxic effect of soaps, accidental (unintentional), initial encounter (principal); F20.0 Paranoid schizophrenia; I25.10 Atherosclerotic heart disease of native coronary artery without angina pectoris; E11.9 Type 2 diabetes mellitus without complications; I10 Essential (primary) hypertension; F17.210 Nicotine dependence, cigarettes, uncomplicated; Z02.89 Encounter for other administrative examinations; Y92.89 Other specified places as the place of occurrence of the external cause
CPT/HCPCS: 80053; 85025; 93005; 99285; 99406; G0480; J2405; J7030; G0481

== ENCOUNTER 2020-09-26 12:54 | Inpatient (IN) | payer MEDICARE, MEDICAID ==
[~2020-09-26] VITALS: Ht 162.6 cm; Wt 99.8 kg
[~2020-09-26 12:54] MED LIST changes: +AMLO-257 PO; -AMLO-511 PO; -BENZ1TAB10 PO; -HYDR25TA PO; -LISI-661 PO; +LISI-893 PO; -OLAN10TA3 PO; +OLAN10TA6 PO; -PALI234D IM; -PALI6 PO
[2020-09-26 15:06] LABS: BASOPHILS % (AUTO) 0.5 % (0.0-2.0); EOSINOPHILS % (AUTO) 0.7 % (1.0-6.0); HEMATOCRIT 34.4 % (36-46); HEMOGLOBIN 10.7 g/dL (12.0-16.0); LYMPHOCYTES # (AUTO) 2.4 K/uL (1.0-4.8); MEAN CORPUSCULAR HEMOGLOBIN 21.7 pg (26.0-34.0); MEAN CORPUSCULAR VOLUME 70 fL (80-100); MONOCYTES # (AUTO) 0.6 K/uL (0.1-1.0); MONOCYTES % (AUTO) 6.7 % (2.0-9.0); NEUTROPHILS # (AUTO) 6.1 K/uL (1.8-7.7); NEUTROPHILS % (AUTO) 66.1 % (40.0-70.0); PLATELET COUNT (AUTO) 172 K/uL (150-450); RED BLOOD CELL COUNT(AUTO) 4.91 MIL/uL (4.00-5.20); RED CELL DISTRIBUTION WIDTH 20.9 % (11.5-14.5)
[2020-09-26 15:17] LABS: ANION GAP 14 mmol/L (8-16); CALCIUM, TOTAL 8.9 mg/dL (8.8-10.5); CARBON DIOXIDE 24 mmol/L (22-29); CHLORIDE 107 mmol/L (98-107); CREATININE 0.74 mg/dL (0.60-1.30); GLOMERULAR FILTR. RATE CALC > 60 mL/min (>60); GLUCOSE,RANDOM 124 mg/dL (70-110); POTASSIUM 3.4 mmol/L (3.5-5.1); SODIUM SERUM 145 mmol/L (136-145); UREA NITROGEN, BLOOD 10 mg/dL (7-18)
[2020-09-26 15:23] LABS: ALANINE AMINOTRANSFERASE 25 U/L (12-78); ALBUMIN 3.8 g/dL (3.4-5.0); ALKALINE PHOSPHATASE 107 U/L (46-116); ASPARTATE AMINOTRANSFERASE 16 U/L (15-37); BILIRUBIN,TOTAL 0.3 mg/dL (0.1-1.0); TOTAL PROTEIN, SERUM 7.4 g/dL (6.4-8.2)
[2020-09-26] MEDS ORDERED: LORazepam 2 MG/ML VIAL ONE (15:24)
[2020-09-26] MEDS ORDERED: LORazepam 2 MG/ML VIAL IM ONE (15:30)
[2020-09-26] MEDS ORDERED: HALOPERIDOL LACTATE 5 MG/ML VIAL IM ONE (15:30)
[2020-09-26] MEDS ORDERED: DiphenhydrAMINE HCL 50 MG/ML VIAL IM ONE (15:30)
[2020-09-26 16:04] LABS: COVID AG,FIA SOURCE NASOPHARYNGEAL
[2020-09-26] MEDS ORDERED: ZOLPIDEM TARTRATE 10 MG TABLET PO PRN (20:00)
[2020-09-27] MEDS ORDERED: DiphenhydrAMINE HCL 50 MG/ML VIAL IM ONE (01:00)
[2020-09-27] MEDS ORDERED: HALOPERIDOL LACTATE 5 MG/ML VIAL IM ONE (01:00)
[2020-09-27] MEDS ORDERED: LORazepam 2 MG/ML VIAL IM ONE (01:00)
[2020-09-27] MEDS ORDERED: PNEUMOCOCCAL VACCINE POLYVALENT 0.5 ML VIAL [PPSV23] IM. ONE (06:00)
[2020-09-27 08:15] VITALS: BP 147/69
[2020-09-27] MEDS: OLANZapine 10 MG TABLET PO SCH ×2 (12:00→20:55)
[2020-09-27] MEDS ORDERED: NICOTINE 14 MG/24 HOUR PATCH TD PRN (13:00)
[2020-09-27] MEDS ORDERED: PETROLATUM,WHITE 28 GM JELLY TP PRN (13:00)
[2020-09-27] MEDS ORDERED: MAG HYDROX/AL HYDROX/SIMETH ES 30 ML SUSPENSION UDCUP PO PRN (13:00)
[2020-09-27] MEDS ORDERED: DOCUSATE SODIUM 100 MG CAPSULE PO PRN (13:00)
[2020-09-27] MEDS ORDERED: ONDANSETRON HCL 4 MG TABLET PO PRN (13:00)
[2020-09-27] MEDS ORDERED: ACETAMINOPHEN 325 MG TABLET PO PRN (13:00)
[2020-09-27] MEDS ORDERED: IBUPROFEN 400 MG TABLET PO PRN (13:00)
[2020-09-27] MEDS ORDERED: ALBUTEROL SULFATE HFA 90 MCG/PUFF 8 GM INHALER IH PRN (13:00)
[2020-09-27] MEDS ORDERED: MAGNESIUM HYDROXIDE SUSPENSION 30 ML UDCUP PO PRN (13:00)
[2020-09-27] MEDS ORDERED: CloNIDine HCL 0.1 MG TABLET PO PRN (13:00)
[2020-09-27] MEDS ORDERED: LOPERAMIDE HCL 2 MG CAPSULE PO PRN (13:00)
[2020-09-27] MEDS: LORazepam 2 MG TABLET PO PRN (16:27)
[2020-09-27] MEDS: GuaiFENesin/D-METHORPHAN [SUGAR-FREE] 200-20MG/10 ML SYRUP UDCUP PO PRN (20:55)
[2020-09-28 05:54] VITALS: BP 125/76
[2020-09-28] MEDS: HALOPERIDOL 5 MG TABLET PO PRN ×2 (08:47→16:00)
[2020-09-28] MEDS: LORazepam 2 MG TABLET PO PRN ×2 (08:47→16:00)
[2020-09-28 09:45] VITALS: BP 155/94
[2020-09-28 10:00] VITALS: BP 148/96
[2020-09-28] MEDS: AmLODIPine BESYLATE 5 MG TABLET PO SCH (10:00)
[2020-09-28] MEDS: LISINOPRIL 10 MG TABLET PO SCH (10:10)
[2020-09-28] MEDS: OLANZapine 10 MG TABLET PO SCH ×2 (10:10→20:16)
[2020-09-28 10:15] VITALS: BP 147/78
[2020-09-28 13:25] VITALS: BP 132/78
[2020-09-28 16:02] VITALS: BP 140/80
[2020-09-28] MEDS ORDERED: POTASSIUM CHLORIDE 20 MEQ ER TABLET PO ONE (18:15)
[2020-09-29] VITALS: BP 132/75
[2020-09-29] MEDS: OLANZapine 10 MG TABLET PO SCH ×2 (07:59→20:02)
[2020-09-29] MEDS: LISINOPRIL 10 MG TABLET PO SCH (07:59)
[2020-09-29] MEDS: AmLODIPine BESYLATE 5 MG TABLET PO SCH (07:59)
[2020-09-29] MEDS: LORazepam 2 MG TABLET PO PRN (12:21)
[2020-09-29] MEDS: GuaiFENesin/D-METHORPHAN [SUGAR-FREE] 200-20MG/10 ML SYRUP UDCUP PO PRN ×2 (12:21→20:02)
[2020-09-29 16:04] VITALS: BP 129/78
[2020-09-30 05:50] VITALS: BP 138/83
[2020-09-30 08:23] VITALS: BP 155/88
[2020-09-30] MEDS: OLANZapine 10 MG TABLET PO SCH ×2 (08:27→20:11)
[2020-09-30] MEDS: LISINOPRIL 10 MG TABLET PO SCH (08:27)
[2020-09-30] MEDS: AmLODIPine BESYLATE 5 MG TABLET PO SCH (08:27)
[2020-09-30] MEDS: GuaiFENesin/D-METHORPHAN [SUGAR-FREE] 200-20MG/10 ML SYRUP UDCUP PO PRN ×2 (08:41→15:06)
[2020-09-30 10:00] VITALS: BP 130/74
[2020-09-30] MEDS: LORazepam 2 MG TABLET PO PRN ×2 (12:35→17:11)
[2020-09-30 16:38] VITALS: BP 142/79
[2020-10-01 01:10] VITALS: BP 132/77
[2020-10-01] MEDS: LISINOPRIL 10 MG TABLET PO SCH ×2 (08:02→08:33)
[2020-10-01] MEDS: OLANZapine 10 MG TABLET PO SCH (08:02)
[2020-10-01] MEDS: AmLODIPine BESYLATE 5 MG TABLET PO SCH (08:02)
[2020-10-01] MEDS: GuaiFENesin/D-METHORPHAN [SUGAR-FREE] 200-20MG/10 ML SYRUP UDCUP PO PRN ×2 (08:04→14:21)
[2020-10-01 08:22] VITALS: BP 162/80
[2020-10-01 10:30] VITALS: BP 138/76
== END 2020-10-01 16:05 | disposition home or self-care (01) | DRG 885 ==
LOC: EMS 13:19 → B3A 19:56 → UNDOADMIN 19:56 → 3EC 19:56
PROVIDERS: ADMIT Psychiatry & Neurology Child & Adolescent Psychiatry; ATTEND Psychiatry & Neurology Child & Adolescent Psychiatry
DX: F20.0 Paranoid schizophrenia (principal); Z20.822 Contact with and (suspected) exposure to COVID-19; I25.10 Atherosclerotic heart disease of native coronary artery without angina pectoris; D64.9 Anemia, unspecified; E11.9 Type 2 diabetes mellitus without complications; E66.9 Obesity, unspecified; E78.5 Hyperlipidemia, unspecified; E87.6 Hypokalemia; I10 Essential (primary) hypertension; F41.9 Anxiety disorder, unspecified
CPT/HCPCS: 12002; 12013; 70450; 80053; 83880; 84484; 85025; 87426; 93005; 99284; 99285; G0480; J1200; J1630; J2060; J3490

== ENCOUNTER 2020-09-28 10:55 | Emergency (ER) | payer MEDICARE, OTHER ==
[~2020-09-28] VITALS: Ht 162.6 cm; Wt 81.8 kg
[2020-09-28 11:17] VITALS: BP 155/92
[2020-09-28] MEDS ORDERED: LIDOCAINE 1% 10 ML VIAL SQ ONE (11:30)
[2020-09-28] MEDS ORDERED: BACITRACIN 0.9 GM PACKET OINTMENT TP ONE (11:30)
== END 2020-09-28 12:59 | disposition home or self-care (01) ==
LOC: EMS 10:55
DX: S01.81XA Laceration without foreign body of other part of head, initial encounter (principal); F20.9 Schizophrenia, unspecified; I25.10 Atherosclerotic heart disease of native coronary artery without angina pectoris; E11.9 Type 2 diabetes mellitus without complications; I10 Essential (primary) hypertension; F17.210 Nicotine dependence, cigarettes, uncomplicated; Z79.899 Other long term (current) drug therapy; W19.XXXA Unspecified fall, initial encounter; Y93.89 Activity, other specified; Y92.89 Other specified places as the place of occurrence of the external cause; Y99.8 Other external cause status
CPT/HCPCS: 12013; 70450; 99284; J3490; 12002